=== PATIENT | female | born 1985 | race Asian ===

== ENCOUNTER 2020-10-30 16:47 | Outpatient (REF) | payer BC, SELFPAY ==
--- NOTE | 2020-10-30 16:00 | PAPFT_PTH ---
PATIENT: BERNARDINO KIRK LOC: [facility]#:[id number] AGE/SX: 35/F ROOM: RE10/30/[address]: Nimisha Watkins : 1985 BED: DIS: 10/30/2020 SPEC #: [id number] RECD: 11/02/20 13:14 STATUS: KAYLEIGH REDavid #: [id number] ERWIN: 10/30/20 16:[address]: Nimisha Watkins DEPT: [facility] [place] Cytology RECD BY: Terra Carvajal ENTERED: 11/02/20 13:14 SP TYPE: PAPFT OTHR DR: Ratna Barton Tissues: 1 - CX/ENDOCX FOR PAP SMEARS Procedures: PAP THIN PREP/[facility] Screening HPV DNA PROBE Comments: [id number]
== END 2020-10-30 16:48 | disposition home or self-care (01) ==
LOC: NCHCN 16:47
PROVIDERS: Visit Provider Family Medicine
DX: Z00.00 Encounter for general adult medical examination without abnormal findings (principal); Z12.4 Encounter for screening for malignant neoplasm of cervix; Z01.419 Encounter for gynecological examination (general) (routine) without abnormal findings; Z11.51 Encounter for screening for human papillomavirus (HPV)
CPT/HCPCS: 88142; 87624